=== PATIENT | male | born 1960 | race African-American/Black ===

== ENCOUNTER → 2023-09-27 | Outpatient (CLI) | payer MEDICARE, OTHER ==
[~2023-09-27] MED LIST: DOCU-150 MT; FERR325T6 MT; FURO40TA5 MT; HYDR-4346 MT; LIP40 PO; POTA-205 MT; RIVA10TA MT; TOPUD MT
== END | disposition home or self-care (01) ==
LOC: MRI 12:37
PROVIDERS: ATTEND Internal Medicine
DX: S93.105A Unspecified dislocation of left toe(s), initial encounter (principal); S93.104A Unspecified dislocation of right toe(s), initial encounter; M19.071 Primary osteoarthritis, right ankle and foot; M19.072 Primary osteoarthritis, left ankle and foot; M89.8X7 Other specified disorders of bone, ankle and foot; X58.XXXA Exposure to other specified factors, initial encounter; Y93.89 Activity, other specified; Y92.89 Other specified places as the place of occurrence of the external cause; Y99.8 Other external cause status
CPT/HCPCS: 73721

== ENCOUNTER 2023-12-15 16:48 | Emergency (ER) | payer MEDICARE, MEDICAID ==
[~2023-12-15] VITALS: Ht 185.4 cm; Wt 123.0 kg
[~2023-12-15 16:48] MED LIST changes: +ALBU05 NEB; +APIX5TAB PO; +ASCO500T20 PO; +CLON0.1T PO; -DOCU-150 MT; -FERR325T6 MT; +FURO20TA4 PO; -FURO40TA5 MT; -HYDR-4346 MT; +LEVO100T9 PO; +MAG30ORA PO; +MIDO5TAB4 PO; +P20 PO; +PANT40TA51 PO; -RIVA10TA MT
[2023-12-15 16:54] VITALS: TEMP 98.3; O2SAT 96
[2023-12-15 17:38] VITALS: BP 133/77; PULSE 94; RESP 18
[2023-12-15 19:02] LABS: MEAN CORPUSCULAR HGB CONC 33.4 g/dL (31.0-37.0); PLATELET 190 x1000/uL (130-400); RED BLOOD CELL COUNT 3.23 mill/uL (4.7-6.1); RED CELL DISTRIBUTION WIDTH 19.4 % (11.6-14.6); WHITE BLOOD COUNT 5.6 x1000/uL (4.5-11.0)
[2023-12-15 19:05] LABS: DIFFERENTIAL COMMENT 1
[2023-12-15 19:08] LABS: INR 1.1; PARTIAL THROMBOPLASTIN TIME 35.4 sec (23.4-31.0); PROTHROMBIN TIME 11.4 sec (9.6-11.0)
[2023-12-15 19:18] LABS: ALANINE AMINOTRANSFERASE 26 IU/L (10-49); ALBUMIN 3.2 g/dL (3.2-4.8); ASPARTATE AMINOTRANSFERASE 19 IU/L (<34); BILIRUBIN TOTAL 0.9 mg/dL (0.1-1.0); CALCIUM 8.8 mg/dL (8.7-10.4); CARBON DIOXIDE 36 mEq/L (21-32); CHLORIDE 100 mEq/L (98-107); CREATININE 0.8 mg/dL (0.6-1.3); GLUCOSE 78 mg/dL (70-105); POTASSIUM 4.1 mEq/L (3.5-5.1); PROTEIN TOTAL 5.8 g/dL (6.0-8.3); SODIUM 139 mEq/L (136-145); UREA NITROGEN BLOOD 18 mg/dL (9-23)
[2023-12-15 19:34] LABS: ANISOCYTOSIS 1+; PLATELET ESTIMATE NORMAL
== END 2023-12-16 01:11 | disposition home or self-care (01) ==
LOC: ER 16:48
DX: S09.90XA Unspecified injury of head, initial encounter (principal); I48.91 Unspecified atrial fibrillation; I11.0 Hypertensive heart disease with heart failure; I50.9 Heart failure, unspecified; J44.9 Chronic obstructive pulmonary disease, unspecified; E11.9 Type 2 diabetes mellitus without complications; D64.9 Anemia, unspecified; Z79.899 Other long term (current) drug therapy; W18.39XA Other fall on same level, initial encounter; Y93.89 Activity, other specified; Y92.89 Other specified places as the place of occurrence of the external cause; Y99.8 Other external cause status
CPT/HCPCS: 36415; 80053; 85025; 86850; 86900; 99284